=== PATIENT | male | born 1980 | race Two or more races ===

== ENCOUNTER 2024-07-27 16:50 | Emergency (ER) | payer OTHER ==
[~2024-07-27] VITALS: Ht 172.7 cm; Wt 99.8 kg
[~2024-07-27 16:50] MED LIST: INSU-656 SUBQ; LANC-886 TP; LISI-951 PO; [UNRECOGNIZED DRUG - CODE] SUBQ
[2024-07-27 16:55] VITALS: BP 159/92; PULSE 101; RESP 18; TEMP 98.5; O2SAT 99
[2024-07-27 16:56] VITALS: TEMP 98.5
[2024-07-27 18:16] LABS: BASOPHILS # (AUTO) 0.1 K/uL (0.00-0.22); BASOPHILS % (AUTO) 1.9 % (0.0-2.0); EOSINOPHILS # (AUTO) 0.3 K/uL (0-0.4); EOSINOPHILS % (AUTO) 4.3 % (0.0-4.0); HEMATOCRIT 36.2 % (36-52); HEMOGLOBIN 12.4 g/dL (12.0-18.0); LYMPHOCYTES # (AUTO) 1.6 K/uL (2.0-11.5); LYMPHOCYTES % (AUTO) 24.8 % (20.5-51.1); MEAN CORPUSCULAR HEMOGLOBIN 30 pg (27-31); MEAN CORPUSCULAR HGB CONC 34 g/dL (33-37); MEAN CORPUSCULAR VOLUME 86.4 fL (80-94); MONOCYTES # (AUTO) 0.9 K/uL (0.8-1.0); MONOCYTES % (AUTO) 13.7 % (1.7-9.3); NEUTROPHILS # (AUTO) 3.7 K/uL (1.8-7.7); NEUTROPHILS % (AUTO) 55.3 % (42.2-75.2); PLATELET COUNT (AUTO) 382 K/uL (140-450); RED BLOOD CELL COUNT(AUTO) 4.19 MIL/uL (4.20-6.10); RED CELL DISTRIBUTION WIDTH 13.3 % (11.6-13.7); WHITE BLOOD COUNT (AUTO) 6.6 K/uL (4.8-10.8)
[2024-07-27 18:30] VITALS: BP 123/82; PULSE 97; RESP 18; O2SAT 99
[2024-07-27 18:35] LABS: ANION GAP 11.6 (8-16); CALCIUM 8.8 mg/dL (8.5-10.1); CARBON DIOXIDE 28.5 mmol/L (21-32); CREATININE 1.6 mg/dL (0.6-1.3); POTASSIUM 4.1 mmol/L (3.5-5.1)
[2024-07-28] MEDS ORDERED: NAPR-1717 PO (03:02)
== END 2024-07-27 19:25 | disposition left against medical advice (07) ==
LOC: MED 16:50
DX: R53.1 Weakness (principal); R11.2 Nausea with vomiting, unspecified; Z53.21 Procedure and treatment not carried out due to patient leaving prior to being seen by health care provider
CPT/HCPCS: 36415; 80048; 85025

== ENCOUNTER 2024-07-27 22:09 | Emergency (ER) | payer OTHER ==
[~2024-07-27] VITALS: Ht 210.8 cm; Wt 81.6 kg
[2024-07-27 22:34] VITALS: BP 155/94; PULSE 100; RESP 16; TEMP 98.6; O2SAT 96
[2024-07-28 01:44] LABS: BASOPHILS # (AUTO) 0.1 K/uL (0.00-0.22); BASOPHILS % (AUTO) 1.5 % (0.0-2.0); EOSINOPHILS # (AUTO) 0.3 K/uL (0-0.4); EOSINOPHILS % (AUTO) 3.5 % (0.0-4.0); HEMATOCRIT 38.3 % (36-52); LYMPHOCYTES # (AUTO) 1.8 K/uL (2.0-11.5); LYMPHOCYTES % (AUTO) 23.7 % (20.5-51.1); MEAN CORPUSCULAR HEMOGLOBIN 29 pg (27-31); MEAN CORPUSCULAR HGB CONC 34 g/dL (33-37); MEAN CORPUSCULAR VOLUME 86.9 fL (80-94); MONOCYTES # (AUTO) 0.9 K/uL (0.8-1.0); MONOCYTES % (AUTO) 12.3 % (1.7-9.3); NEUTROPHILS # (AUTO) 4.5 K/uL (1.8-7.7); PLATELET COUNT (AUTO) 402 K/uL (140-450); RED CELL DISTRIBUTION WIDTH 13.5 % (11.6-13.7); WHITE BLOOD COUNT (AUTO) 7.7 K/uL (4.8-10.8)
[2024-07-28 01:57] LABS: ANION GAP 8.9 (8-16); CARBON DIOXIDE 32.5 mmol/L (21-32); CREATININE 1.4 mg/dL (0.6-1.3); POTASSIUM 4.4 mmol/L (3.5-5.1)
[2024-07-28 02:02] LABS: TOTAL BILIRUBIN 0.1 mg/dL (0.0-1.0); TOTAL PROTEIN, SERUM 7.2 g/dL (6.4-8.2)
[2024-07-28] MEDS: IBUPROFEN 600 MG TAB PO ONE (02:50)
[2024-07-28] MEDS ORDERED: NAPR-1717 PO (03:02)
== END 2024-07-28 03:10 | disposition home or self-care (01) ==
LOC: MED 22:09
DX: E11.42 Type 2 diabetes mellitus with diabetic polyneuropathy (principal); I10 Essential (primary) hypertension; Z79.899 Other long term (current) drug therapy; Z79.4 Long term (current) use of insulin
CPT/HCPCS: 36415; 80048; 80076; 85025; 99283